=== PATIENT | male | born 1990 | race Caucasian/White ===

== ENCOUNTER 2020-03-19 22:17 | Emergency (ER) | payer MEDICAID ==
[~2020-03-19] VITALS: Ht 177.8 cm; Wt 101.2 kg
[2020-03-19 22:27] VITALS: BP 125/79; Ht 177.8 cm; Wt 101.2 kg
== END 2020-03-19 23:15 | disposition home or self-care (01) ==
LOC: ED 22:17
DX: K05.30 Chronic periodontitis, unspecified (principal)